=== PATIENT | female | born 1995 | race American Indian/Alaskan Native ===

== ENCOUNTER 2016-11-20 13:44 | Outpatient (CLI) | payer OTHER ==
[2016-11-20 14:02] LABS: Hematocrit 30.5 % (30.3-42.9); Hemoglobin 10.7 gm/dl (10.1-14.3)
== END 2016-11-20 13:45 | disposition home or self-care (01) ==
LOC: LAB 13:44
PROVIDERS: ATTEND Internal Medicine
DX: D57.1 Sickle-cell disease without crisis (principal)
CPT/HCPCS: 36415; 85014; 85018